=== PATIENT | male | born 1945 | race Caucasian/White ===

== ENCOUNTER 2020-09-22 10:09 | Emergency (ER) | payer MEDICARE, BC ==
[2020-09-22] MEDS ORDERED: Sodium Chloride 0.9% 1,000 ML IV SCH (11:00)
--- NOTE | 2020-09-22 11:36 | EDM.PDOC ---
ED HPI GENERAL MEDICAL PROBLEM - General Chief Complaint: Neurological Problem Stated Complaint: WEAKNESS IN RIGHT ARM AND WRIST Time Seen by Provider: 09/22/20 10:30 Source of Information: Reports: Patient, Family, Provider History Limitations: Reports: No Limitations - History of Present Illness INITIAL COMMENTS - FREE TEXT/NARRATIVE: 75-year-old male with no previous neurologic history was out playing golf when he reached into his bag to get a club and he noticed a marked lack of coordination of his right arm. This was persistent over the course of several minutes, he did not develop any other symptoms but thought he should go get it checked out so he went into the urgent care clinic. After a brief evaluation he was sent to the emergency room. He thinks he is improving fairly rapidly, symptoms started 45 minutes ago. He has no headache, visual disturbance, dysarthria or expressive aphasia, or lower extremity symptoms. Onset: Sudden Duration: Hour(s): (45 minutes ago) Location: Reports: Upper Extremity, Right (Symptoms seem to be localized to the right upper extremity) Associated Symptoms: Reports: No Other Symptoms - Related Data Allergies Allergy/AdvReac Type Severity Reaction Status Date / Time Milk Containing Products AdvReac Nausea and Verified 09/22/20 10:23 Vomiting monosodium glutamate AdvReac Nausea and Verified 09/22/20 10:23 Vomiting Home Meds: Home Meds Aspirin [Halfprin] 81 mg PO DAILY 02/09/14 [History] Lactase [Dairy Relief] 3,000 unit PO TID 02/09/14 [History] Multivitamin with Minerals [Multiple Vitamin] 1 tab PO DAILY 02/09/14 [History] Pantoprazole Sodium 40 mg PO BEDTIME 02/09/14 [History] Propranolol [Inderal] 10 mg PO TID 02/09/14 [History] Simvastatin 40 mg PO BEDTIME 02/09/14 [History] Vit A/C/E/Zinc/Selenium/Copper [Vision Formula Tablet] 1 each PO DAILY 09/22/20 [History] Past Medical History HEENT History: Reports: Impaired Vision Cardiovascular History: Reports: High Cholesterol, Hypertension Gastrointestinal History: Reports: GERD Oncologic (Cancer) History: Reports: Other (See Below) Other Oncologic History: skin ca - Infectious Disease History Infectious Disease History: Reports: Chicken Pox, Measles, Mumps - Past Surgical History GI Surgical History: Reports: Appendectomy, Hernia Repair/Other Musculoskeletal Surgical History: Reports: Shoulder Surgery Social & Family History - Tobacco Use Tobacco Use Status *Q: Former Tobacco User Used Tobacco, but Quit: Yes Month/Year Tobacco Last Used: 1977 - Caffeine Use Caffeine Use: Reports: Coffee - Recreational Drug Use Recreational Drug Use: No ED ROS GENERAL - Review of Systems Review Of Systems: See Below Constitutional: Denies: Fever, Chills HEENT: Denies: Vision Change Respiratory: Denies: Shortness of Breath, Wheezing Cardiovascular: Denies: Chest Pain, Blood Pressure Problem GI/Abdominal: Denies: Abdominal Pain, Nausea, Vomiting Skin: Reports: No Symptoms Neurological: Reports: Other (Only symptom is lack of coordination of the right arm). Denies: Confusion, Dizziness, Headache, Difficulty Walking Psychiatric: Reports: No Symptoms ED EXAM, NEURO - Physical Exam Exam: See Below Exam Limited By: No Limitations General Appearance: Alert, No Apparent Distress Eye Exam: Bilateral Eye: Normal Inspection Head Exam: Atraumatic Neck: Supple, Non-Tender Respiratory/Chest: Lungs Clear Cardiovascular: Regular Rate, Rhythm. No: Tachycardia, Irregularly Irregular Extremities: Other ([id number] coordination of the right arm is now near normal, grasp strength is good.) Psychiatric: Normal Affect, Normal Mood Skin Exam: Warm, Dry Course - Vital Signs Last Recorded V/S: Last Vital Signs Temp 97.6 F 09/22/20 10:27 Pulse 66 09/22/20 14:15 Resp 16 09/22/20 14:15 BP 144/78 H 09/22/20 14:15 Pulse Ox 98 09/22/20 14:15 - Orders/Labs/Meds Labs: Laboratory Tests 09/22/20 09/22/20 Range/Units 11:10 11:10 WBC 8.3 (4.5-11.0) K/uL RBC 4.78 (4.30-5.90) M/uL Hgb 15.0 (12.0-15.0) g/dL Hct 44.2 (40.0-54.0) % MCV 93 (80-98) fL MCH 31 (27-31) pg MCHC 34 (32-36) % Plt Count 198 (150-400) K/uL Neut % (Auto) 75.1 H (36-66) % Lymph % (Auto) 14.6 L (24-44) % Nye % (Auto) 6.9 H (2-6) % Eos % (Auto) 2.9 (2-4) % Baso % (Auto) 0.5 (0-1) % Sodium 140 (140-148) mmol/L Potassium 4.9 (3.6-5.2) mmol/L Chloride 104 (100-108) mmol/L Carbon Dioxide 26 (21-32) mmol/L Anion Gap 10.4 (5.0-14.0) mmol/L BUN 20 H (7-18) mg/dL Creatinine 1.1 (0.8-1.3) mg/dL Est Cr Clr Drug Dosing 65.63 mL/min Estimated GFR (MDRD) > 60 (>60) Glucose 105 (74-106) mg/dL Calcium 8.6 (8.5-10.1) mg/dL Total Bilirubin 0.6 (0.2-1.0) mg/dL AST 27 (15-37) U/L ALT 45 (12-78) U/L Alkaline Phosphatase 73 (46-116) U/L Total Protein 6.7 (6.4-8.2) g/dL Albumin 3.5 (3.4-5.0) g/dL Globulin 3.2 (2.3-3.5) g/dL Albumin/Globulin Ratio 1.1 L (1.2-2.2) Meds: Medications Discontinued Medications Generic Name Dose Route Start Last Admin Trade Name Freq PRN Reason Stop Dose Admin Sodium Chloride 1,000 mls @ 500 mls/hr 09/22/20 11:00 09/22/20 11:16 Normal Saline IV 500 mls/hr ASDIRECTED URBAN Administration Sodium Chloride 100 mls @ 3 mls/sec 09/22/20 12:00 Normal Saline IV ASDIRECTED URBAN Iopamidol 100 ml 09/22/20 12:00 Iopamidol 755 Mg/Ml 100 Ml Bottle IV . DIRECTED URBAN Sodium Chloride 10 ml 09/22/20 11:53 Sodium Chloride 0.9% 10 Ml Sdv FLUSH 09/22/20 11:54 ONETIME ONE Departure - Departure Time of Disposition: 15:11 Disposition: DC/Tfer to Other 70 Clinical Impression: Right arm weakness, TIA (transient ischemic attack) - Discharge Information Instructions: Transient Ischemic Attack Referrals: Ruben Leon MD [Primary Care Provider] - Forms: ED Department Discharge Care Plan Goals: Go to [facility] to be admitted for further evaluation of likely small stroke or TIA. Sepsis Event Note (ED) - Evaluation Sepsis Screening Result: No Definite Risk - Focused Exam Vital Signs: Vital Signs Temp Pulse Resp BP Pulse Ox 09/22/20 14:15 66 16 144/78 H 98 09/22/20 10:27 97.6 F 65 16 166/93 H 95 09/22/20 10:21 97.6 F 65 16 166/93 H 95
[2020-09-22] MEDS ORDERED: Sodium Chloride 0.9% 10 ML SDV FLUSH ONE (11:53)
[2020-09-22] MEDS ORDERED: Iopamidol 755 Mg/ML 100 ML Bottle IV SCH (12:00)
[2020-09-22] MEDS ORDERED: Sodium Chloride 0.9% 100 ML IV SCH (12:00)
--- NOTE | 2020-09-22 13:05 | CT ---
Head wo Cont CLINICAL HISTORY: Right arm weakness COMPARISON: May 2007 TECHNIQUE: Transverse scans were obtained from the base of the skull through the vertex without IV contrast on a multislice, multidetector CT scanner. Auto dosage reduction and iterative reconstruction techniques employed. FINDINGS: No focal abnormal parenchymal density is identified.. There is no mass effect, hemorrhage, or extraaxial collection. The basal cisterns and sulci over the convexities are normal. The ventricles are normal for age. IMPRESSION: No acute intracranial process
--- NOTE | 2020-09-22 13:05 | CT ---
Ang Head CLINICAL HISTORY: Right arm weakness. COMPARISON: None TECHNIQUE: Multiple volume rendered and MIP 3D reconstructions were generated from source images obtained on a spiral scanner before and after intravenous iodinated contrast enhancement Auto dosage reduction and iterative reconstruction techniques employed. FINDINGS: Internal carotid arteries: Shows some hard plaque. There is some mild focal stenosis in the right upper carotid siphon. There is a moderate focal stenosis in the left near the level of the clinoid. Anterior cerebral arteries: Normal course and caliber Middle cerebral arteries: Normal course and contour Posterior cerebral arteries: Mild segmental stenosis in the proximal right cerebral artery Vertebral/basilar arteries: There is hard plaque in both distal vertebral arteries with minimal to mild stenosis IMPRESSION: Hard plaque causes stenosis in both carotid siphons greater on the left. Hard plaque in both vertebral arteries causes mild stenosis bilaterally.
[2020-09-22 14:15] VITALS: BP 144/78; PULSE 66
== END 2020-09-22 15:11 | disposition other institution (70) ==
LOC: JP.ED 10:09
DX: G45.9 Transient cerebral ischemic attack, unspecified (principal); K21.9 Gastro-esophageal reflux disease without esophagitis; E78.00 Pure hypercholesterolemia, unspecified; Z88.8 Allergy status to other drugs, medicaments and biological substances; Z91.011 Allergy to milk products; I10 Essential (primary) hypertension; E66.9 Obesity, unspecified; Z68.32 Body mass index [BMI] 32.0-32.9, adult; Z87.891 Personal history of nicotine dependence; Z79.82 Long term (current) use of aspirin; Z79.899 Other long term (current) drug therapy
CPT/HCPCS: 36415; 70450; 70450-26; 70496; 70496-26; 80053; 85025; 99285-25; J7030

== ENCOUNTER 2022-02-25 20:07 | Emergency (ER) | payer MEDICARE, BC ==
[2022-02-25] MEDS ORDERED: Lidocaine 1% 5 ML VIAL INJECT ONE (20:13)
[2022-02-25] MEDS ORDERED: Bacitracin Oint 1 GM U/D Packet TOP ONE (20:13)
[2022-02-25 20:38] VITALS: BP 158/82; PULSE 69
[2022-02-25] MEDS ORDERED: Diphtheria,Pertussis(Acell),Tetanus Vaccine 0.5 ML Syringe IM ONE (21:04)
== END 2022-02-25 22:04 | disposition home or self-care (01) ==
LOC: JP.ED 20:07
DX: S61.011A Laceration without foreign body of right thumb without damage to nail, initial encounter (principal); I10 Essential (primary) hypertension; E78.00 Pure hypercholesterolemia, unspecified; K21.9 Gastro-esophageal reflux disease without esophagitis; Z23 Encounter for immunization; Z91.011 Allergy to milk products; Z88.8 Allergy status to other drugs, medicaments and biological substances; Z79.899 Other long term (current) drug therapy; W26.0XXA Contact with knife, initial encounter
CPT/HCPCS: 12002; 90471; 90715; 99281; 99282-25